=== PATIENT | female | born 1995 | race Caucasian/White ===

== ENCOUNTER → 2018-02-25 | Outpatient (CLI) | payer OTHER | END | disposition home or self-care (01) | LOC: M.RAD 02-17 16:57 | DX: S73.192A Other sprain of left hip, initial encounter (principal); M25.552 Pain in left hip; G89.29 Other chronic pain; X58.XXXA Exposure to other specified factors, initial encounter; Y93.89 Activity, other specified; Y92.89 Other specified places as the place of occurrence of the external cause; Y99.8 Other external cause status ==